=== PATIENT | male | born 1980 | race Caucasian/White ===

== ENCOUNTER 2016-10-16 10:16 | Emergency (ER) | payer BC, OTHER ==
[~2016-10-16] VITALS: Ht 177.8 cm; Wt 83.9 kg
[~2016-10-16 10:16] MED LIST: ARIP2TAB9 PO; ATOR10TA PO; DIVA500T54 PO; OMEP10CA4
[2016-10-16] MEDS ORDERED: IBUPROFEN 400 MG TABLET PO ONE (10:30)
[2016-10-16] MEDS ORDERED: IBUPROFEN 400 MG TABLET ONE (11:02)
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
--- NOTE | 2016-10-16 11:40 | NUR ---
PROVIDED WITH WATER PER PT REQUEST
[2016-10-16 11:56] VITALS: BP 118/96
--- NOTE | 2016-10-16 11:56 | NUR ---
Patient discharged to [facility] in stable condition. Written and verbal after care instructions given. Patient verbalizes understanding of instruction.
== END 2016-10-16 11:57 ==
LOC: ER 10:19
DX: S90.31XA Contusion of right foot, initial encounter (principal); S20.212A Contusion of left front wall of thorax, initial encounter; E78.00 Pure hypercholesterolemia, unspecified; F17.210 Nicotine dependence, cigarettes, uncomplicated; F10.20 Alcohol dependence, uncomplicated; Z88.0 Allergy status to penicillin; W22.01XA Walked into wall, initial encounter; Y93.89 Activity, other specified; Y92.89 Other specified places as the place of occurrence of the external cause; Y99.8 Other external cause status
CPT/HCPCS: 71100; 73630; 99284; A4606; Z7610